=== PATIENT | female | born 1960 | race Hispanic/Latino ===

== ENCOUNTER 2016-12-11 10:32 | Emergency (ER) | payer OTHER ==
[~2016-12-11] VITALS: Ht 149.9 cm; Wt 93.9 kg
[~2016-12-11 10:32] MED LIST: GLIPIZIDE XL10 MG PO; JANUVIA100 M1 PO; LANTUS SOL100 UNIT/1 SC
[2016-12-11 10:41] VITALS: BP 106/67
--- NOTE | 2016-12-11 11:11 | ED INFLUENZA/URI COMPLAINT ---
History of Present Illness General Chief Complaint: General Adult Stated Complaint: ESPARZA,CHEST PAIN,FEVER,COUGH Source: patient, old records Exam Limitations: no limitations Vital Signs & Intake/Output Vital Signs & Intake/Output Vital Signs Date Time Temp Pulse Resp B/P Pulse O2 O2 Flow FiO2 Ox Delivery Rate 12/11 1128 Room Air 12/11 1041 97.3 90 20 106/67 96 Room Air Allergies Coded Allergies: Penicillins (HIVES 12/11/16) Reconcile Medications Enalapril Maleate 2.5 MG TABLET 1 TAB PO DAILY HEART (Reported) Escitalopram Oxalate 10 MG TABLET 1 TAB PO DAILY MENTAL HEALTH (Reported) Glipizide (Glipizide XL) [address] 10 MG PO BID SUGAR (Reported) Insulin Aspart, Recombinant (Novolog Flexpen) 100 UNIT/ML INSULN.PEN 8 U SC TID DIABETES (Reported) Insulin Glargine,Hum.rec.anlog (Lantus Solostar) 100 UNIT/ML (3 ML) INSULN.PEN 40 UNIT SC QPM DM (Reported) Methylprednisolone. (Medrol) 4 MG TAB.DS.PK 1 DP PO AD bronchitis 6 on day 1 then reduce by one tablet daily until gone Robitussin AC (Guaifenesin-Codeine Syrup) 200 MG-20 MG/10 ML LIQUID 10 ML PO Q6HR PRN COUGH Rosuvastatin Calcium (Crestor) 10 MG TABLET 1 TAB PO DAILY CHOLESTEROL ( Reported) Sitagliptin Phosphate (Januvia) 100 MG TABLET 1 TAB PO DAILY DM (Reported) Triage Note: PT TO ED C/O URI S/S. STATES SHE WENT TO THE WALK IN ON TUESDAY AND DIAGNOSED WITH BRONCHITIS. WAS GIVEN Z-PACK, HAS BEEN TAKING PRESCRIBED. PT STATES SHE FEELS WORSE. STATES FEVERS AT HOME, AFEBRILE NOW. C/O PRODUCTIVE COUGH WITH YELLOW SPUTUM. Triage Nurses Notes Reviewed? yes Onset: Gradual Duration: day(s): (4), constant Timing: recent history Severity: mild, moderate Severity Numbers: 5 No Modifying Factors: none Associated Symptoms: cough HPI: This is a 56-year-old female with history of diabetes presents emergency room complaining of a four-day history of a productive cough of yellow sputum associated generalized bodyaches nausea subjective fevers. She went to a walk- in today the symptoms began and had a negative flu swab and was prescribed azithromycin and Proventil inhaler however states her symptoms have persisted, she states they're worse at nighttime. She denies any chest pain however states that her body has been sore from the coughing. No sore throat rhinorrhea congestion no sick contacts with similar symptoms at this time. She denies any shortness of breath she does not smoke no history of asthma. She denies any abdominal pain nausea vomiting diarrhea no urinary symptoms. There are no modifying factors or associated symptoms otherwise (TAMARA HENRY) Past History Travel History Traveled to [place] past 21 day No Medical History Any Pertinent Medical History? see below for history Endocrine: diabetes Surgical History Surgical History: none Psychosocial History What is your primary language Azerbaijani Tobacco Use: Quit >30 days ago ETOH Use: denies use Illicit Drug Use: denies illicit drug use Family History Hx Contributory? No (TAMARA HENRY) Review of Systems Review of Systems Constitutional: Reports: see HPI. All Other Systems: Reviewed and Negative Comments Review of systems: See HPI, All other systems negative. Constitutional, no chills fever, no malaise no weight loss HEENT: No visual changes no sore throat no congestion, no ear pain Cardiovascular: No chest pain , no palpitation Skin, no jaundice no rashes, no change in skin Respiratory: No dyspnea cough no sputum GI: No nausea no vomiting, no diarrhea, no bloating/constipation : No dysuria Muscle skeletal: No joint pain, no joint swelling, no back pain, no neck pain, Neurologic: No numbness no confusion, no headache Psych: No stress Heme/endocrine: No bruising no bleeding Immunology: No lymphadenopathy (TAMARA HENRY) Physical Exam Physical Exam General Appearance: well developed/nourished, alert, awake Ears, Nose, Throat: normal ENT inspection, moist mucous membrane, hearing grossly normal, Tympanic normal Comments: Well-developed well-nourished patient in no apparent distress. Head/Face: Atraumatic, no maxillary/frontal sinus tenderness, no facial swelling Eyes: PERRL, EOMI, no conjunctival injection. No nystagmus Ear:External auditory canal and Tympanic membranes clear, no erythema, no FB. Nose: atraumatic.Normal inspection: No bleeding, no septal hematoma Throat: Moist mucous membranes.Pharynx normal. No pharyngeal erythema/exudate seen. No stridor/drooling or assymetry. No swelling or edema. Neck: Supple, no lymphadenopathy, FROMy Back: FROM, Nontender Cardiovascular: Regular rate and rhythms no murmurs rubs or gallops, Respiratory: Chest nontender.There were no bony deformities, no asymmetry. No respiratory distress. Patient speaking in full complete sentences. Breath sounds clear to auscultation bilaterally: NO W/R/R Extremities: full range of motion Neuro: Alert and oriented x3 Skin: Warm & dry;No appreciable rash on exposed skin Psych: Mood affect normal, normal memory normal judgment. Core Measures Severe Sepsis Present: No Septic Shock Present: No (TONI ROUSE,TAMARA) Progress Differential Diagnosis: influenza, otitis, pneumonia, pharyngitis, sinusitis, BRONCHTIIS Plan of Care: Orders Procedure Date/time Status EKG 12/11 1033 Active Chest x-ray ordered. Patient speaking full complete sentences nontoxic appearing Discussed with patient her chest x-ray and EKG results need to continue with the azithromycin, and pro-air inhaler and discussed with her close follow-up with primary care next week. Prescription for Robitussin with codeine and prednisone provided I discussed the medications that they will receive with the patient. I gave them signs and symptoms that could indicate an adverse reaction. I discussed with her the importance of continued checking her blood sugar is medications may cause him to become elevated. I have advised them to limit their activities until they can see how they respond to the medication. She feels comfortable with this plan cleared for discharge (TONI ROUSE,TAMARA) Diagnostic Imaging: Viewed by Me: Radiology Read. Discussed w/RAD: Radiology Read. Radiology Impression: PATIENT: EVY GIRON PRESENT AGE: 56 PATIENT ACCOUNT NO: [id number] : 56 LOCATION: [facility] ORDERING PHYSICIAN: TAMARA ROUSE SERVICE DATE: 12/11/16 EXAM TYPE: RAD - XRY- CHEST XRAY, PA AND LATERAL EXAMINATION: XR CHEST CLINICAL INFORMATION: 56-year- old woman with cough and fever. COMPARISON: 04/28/2014 chest radiograph TECHNIQUE: 2 views of the chest were obtained. FINDINGS: The lungs are well expanded and clear, without evidence of focal airspace consolidation or overt pulmonary edema. Heart size is within the range of normal. There are no pleural effusions. IMPRESSION: No radiographic evidence of an acute cardiopulmonary process. DICTATED BY: MAYA BARFEILD MD DATE/TIME DICTATED:12/11/161152 CHECKER IN:ZULAY DATE/TIME TRANSCRIBED:12/11/161152 CONFIDENTIAL, DO NOT COPY WITHOUT APPROPRIATE AUTHORIZATION. <Electronically signed in Other Vendor System> SIGNED BY: MAYA BARFIELD MD 12/11/16 1157 Initial ED EKG: NORMAL SINUS AT 90, NONSPECIFIC st SEGMENT CHANGES NORMAL AXIS Prior EKG: unchanged (04/2014) (TAMARA HENRY) Departure Departure Time of Disposition: 114 Disposition: HOME OR SELF CARE Condition: Stable Clinical Impression Primary Impression: Bronchitis Referrals: UNKNOWN (PCP/Family) Additional Instructions: Follow-up with your primary care physician on Tuesday continue taking the azithromycin and pro-air inhaler as previously instructed. Medrol Dosepak, Robitussin with codeine as directed continue to check her blood sugars as these medications may make them be elevated. Use caution as the codeine may make you drowsy no driving or drinking alcohol while taking. Return to the emergency room with any concerns These prescriptions were sent to your pharmacy Departure Forms: Customer Survey General Discharge Information Prescriptions: Current Visit Scripts Methylprednisolone. (Medrol) 1 DP PO AD #1 DP 6 on day 1 then reduce by one tablet daily until gone Robitussin AC (Guaifenesin-Codeine Syrup) 10 ML PO Q6HR PRN COUGH #200 ML (TAMARA HENRY) PA/SUPERVISOR NURSE Co-Sign Statement Statement: ED Attending supervision documentation- [] I saw and evaluated the patient. I have also reviewed all the pertinent lab results and diagnostic results. I agree with the findings and the plan of care as documented in the PA's/SUPERVISOR NURSE's documentation. [X] I have reviewed the ED Record and agree with the PA's/SUPERVISOR NURSE's documentation. [] Additions or exceptions (if any) to the PAs/SUPERVISOR NURSE's note and plan are summarized below: [] (PATRIC OCHOA,EMMANUEL)
[2016-12-11] MEDS ORDERED: ENALAPRIL MALE2.5 M1 PO (11:28)
[2016-12-11] MEDS ORDERED: CRESTOR10 M1 PO (11:29)
[2016-12-11] MEDS ORDERED: ESCITALOPRAM OX10 MG PO (11:29)
[2016-12-11] MEDS ORDERED: NOVOLOG FL100 UNIT/1 SC (11:29)
[2016-12-11] MEDS ORDERED: MEDROL4 M2 PO (11:45)
[2016-12-11] MEDS ORDERED: GUAIFENESIN-COD10 ML PO (11:45)
--- NOTE | 2016-12-11 11:57 | RADIOLOGY REPORT ---
EXAMINATION: XR CHEST CLINICAL INFORMATION: 56-year-old woman with cough and fever. COMPARISON: 04/28/2014 chest radiograph TECHNIQUE: 2 views of the chest were obtained. FINDINGS: The lungs are well expanded and clear, without evidence of focal airspace consolidation or overt pulmonary edema. Heart size is within the range of normal. There are no pleural effusions. IMPRESSION: No radiographic evidence of an acute cardiopulmonary process.
== END 2016-12-11 11:49 ==
LOC: ERH 10:32
DX: R07.9 Chest pain, unspecified (principal); J40 Bronchitis, not specified as acute or chronic
CPT/HCPCS: 93005; 93010

== ENCOUNTER 2017-05-04 20:02 | Emergency (ER) | payer OTHER ==
[~2017-05-04 20:02] MED LIST changes: +CRESTOR10 M1 PO; +ENALAPRIL MALE2.5 M1 PO; +ESCITALOPRAM OX10 MG PO; +GUAIFENESIN-COD10 ML PO; +MEDROL4 M2 PO; +NOVOLOG FL100 UNIT/1 SC
--- NOTE | 2017-05-04 20:37 | ED UPPER/LOWER EXTREMITY COMPL ---
History of Present Illness General Chief Complaint: Lower Extremity Problems Stated Complaint: " RT LEG PAIN X5DAYS" Source: patient, family Exam Limitations: no limitations Vital Signs & Intake/Output Vital Signs & Intake/Output Vital Signs Date Time Temp Pulse Resp B/P B/P Pulse O2 O2 Flow FiO2 Mean Ox Delivery Rate 05/04 2206 96.4 78 20 112/56 96 Room Air 05/04 2011 97.5 68 16 112/75 96 Room Air ED Intake and Output 05/05 0000 05/04 1200 Intake Total Output Total Balance Patient 213 lb Weight Weight Reported by Patient Measurement Method Allergies Coded Allergies: Penicillins (HIVES 12/11/16) Reconcile Medications Cyclobenzaprine HCl 5 MG TABLET 1 TAB PO TIDPRN PRN pain Diclofenac Epolamine (Flector) 1.3 % PATCH.TD12 1 PAT TOP BID PRN PAIN ( Reported) Enalapril Maleate 2.5 MG TABLET 1 TAB PO DAILY BP (Reported) Escitalopram Oxalate 10 MG TABLET 1 TAB PO DAILY MENTAL HEALTH (Reported) Glipizide 10 MG TABLET 1 TAB PO BID DM (Reported) Insulin Aspart, Recombinant (Novolog Flexpen) 100 UNIT/ML INSULN.PEN 8 U SC TID DIABETES (Reported) Insulin Glargine,Hum.rec.anlog (Lantus Solostar) 100 UNIT/ML (3 ML) INSULN.PEN 40 UNIT SC QPM DM (Reported) Rosuvastatin Calcium (Crestor) 10 MG TABLET 1 TAB PO DAILY CHOLESTEROL ( Reported) Sitagliptin Phosphate (Januvia) 100 MG TABLET 1 TAB PO DAILY DM (Reported) Tylenol With Codeine (Tylenol With Codeine #3 Tablet) 300 MG-30 MG TABLET 1 TAB PO TIDP PRN pain Triage Note: 57F C/O R POPLITEAL PAIN RADIATING ACROSS PATELLA AND DOWN BACK OF CALF X5-6 DAYS. UNABLE TO BEAR WEIGHT. TOOK MOTRIN 1 HOUR AGO WITHOUT IMPROVEMENT. REPORTS SWELLING, DENIES REDNESS OR WARMTH. UNABLE TO VISUALIZE IN TRIAGE. DENIES INJURY OR TRAUMA. DENIES RECENT TRAVEL OR PROLONGED PERIODS OF INACTIVITY. DENIES CP/SOB Triage Nurses Notes Reviewed? yes Onset: Abrupt Duration: day(s): (5-6), constant, continues in ED, getting worse Timing: single episode today Severity: mild, moderate Severity Numbers: 9 Pain/Injury Location: Right: Leg. Method of Injury: unknown No Modifying Factors: none Associated Symptoms: swelling LMP (ages 10-50): post menopausal : No Patient currently breastfeeds: No HPI: 57-year-old female with a past medical history of diabetes presents complaining of pain in her right lower leg for the past 5 or 6 days. Patient reports pain started gradually behind her right knee and gradually worsened and traveled down her right leg to the right ankle and right calf. Patient is worse with any type of movement and weightbearing. Patient reports she is having a very difficult time walking due to the pain. Patient has been taking ibuprofen without any significant improvement. She rates the pain as a 9 out of 10. Patient also reports associated swelling of the right calf and ankle. She denies any recent travel, recent surgery, recent trauma, estrogen use, history of BTE, family history of blood clots, chest pain, shortness of breath, knee pain, hip pain, hemoptysis or any other associated symptoms. (NAHOMY MULLINS PA-C) Past History Travel History Traveled to [place] past 21 day No Medical History Any Pertinent Medical History? see below for history Neurological: NONE EENT: NONE Cardiovascular: NONE Respiratory: NONE Gastrointestinal: NONE Hepatic: NONE Renal: NONE Musculoskeletal: NONE Psychiatric: NONE Endocrine: diabetes Surgical History Surgical History: none Psychosocial History What is your primary language French Tobacco Use: Quit >30 days ago ETOH Use: denies use Family History Hx Contributory? No (NAHOMY MULLINS PA-C) Review of Systems Review of Systems Constitutional: Reports: no symptoms. EENTM: Reports: no symptoms. Respiratory: Reports: no symptoms. Cardiovascular: Reports: no symptoms. Gastrointestinal/Abdominal: Reports: no symptoms. Genitourinary: Reports: no symptoms. Musculoskeletal: Reports: see HPI, joint pain, joint swelling, muscle pain. Skin: Reports: no symptoms. Neurological/Psychological: Reports: no symptoms. Hematologic/Endocrine: Reports: no symptoms. Immunological: Reports: no symptoms. All Other Systems: Reviewed and Negative (NAHOMY MULLINS PA-C) Physical Exam Physical Exam General Appearance: well developed/nourished, no apparent distress, alert, awake , obese Head: atraumatic, normal appearance Eyes: Bilateral: normal appearance, PERRL, EOMI. Ears, Nose, Throat: normal pharynx, normal ENT inspection, hearing grossly normal Neck: normal inspection, supple, full range of motion, no midline tenderness Cardiovascular/Respiratory: normal breath sounds, normal peripheral pulses, regular rate/rhythm, no respiratory distress Peripheral Pulses: 2+ tibialis posterior (R), 2+ tibialis posterior (L), 2+ dorsalis pedis (R), 2+ dorsalis pedis (L) Back: normal inspection, normal range of motion Shoulder Left: normal range of motion, normal inspection Shoulder Right: normal range of motion, normal inspection Elbow Left: normal range of motion, normal inspection Elbow Right: normal range of motion, normal inspection Hand Left: normal inspection, normal range of motion Hand Right: normal inspection, normal range of motion Leg Left: normal range of motion, normal inspection Leg Right: normal range of motion, normal inspection, swelling (MILD), tenderness, soft tissue tenderness (CALF) Hip Left: normal range of motion, normal inspection Hip Right: normal range of motion, normal inspection Knee Left: normal range of motion, normal inspection Knee Right: normal range of motion, normal inspection, tenderness, soft tissue tenderness Foot Left: normal inspection, normal range of motion Foot Right: normal range of motion, tenderness, soft tissue tenderness, swelling (MILD) Neurologic/Tendon: normal sensation, normal motor functions, normal tendon functions, responds to pain, no evidence tendon injury, no pulse deficit Skin: intact, normal color, warm/dry Lymphatic: no anterior cervical hunter Comments: There is pain to palpation of the right ankle, right calf and right popliteal fossa. Full range of motion of the right knee and right ankle are intact without pain. There is very mild diffuse swelling of the right lower extremity. No erythema, discharge or bony tenderness. Patient is able to bear weight but is walking with a limp. (HARPREET GARCIA,NAHOMY) Progress Differential Diagnosis: arterial insufficiency, cellulitis, compartment syndrome , contusion, dislocation, DVT, fracture, gout, sprain, tendon injury Plan of Care: Orders Procedure Date/time Status Durable Medical Equipment 05/04 2146 Active Patient will have an ultrasound to rule out DVT. Based on exam suspect a musculoskeletal cause of the pain. 9:44 PM: Ultrasound of the right lower extremity is negative for DVT. Suspicion for fracture is very low considering there is no trauma and patient has full active and passive range of motion without pain. No x-rays will be ordered at this time. Patient will be given a knee immobilizer and cane along with cyclobenzaprine and Tylenol with codeine to use for pain control. Discussed all results of today's visit with patient. She is nontoxic. Discharge and agrees the plan. Patient has a follow-up appointment with her primary care doctor this coming Tuesday. (HARPREET GARCIA,NAHOMY) Comments: PATIENT: EVY GIRON PRESENT AGE: 57 PATIENT ACCOUNT NO: [id number] : 56 LOCATION: [facility] ORDERING PHYSICIAN: NAHOMY MULLINS PA-C SERVICE DATE: 05/04/17 EXAM TYPE: US - US-UNILATERAL VENOUS DOPPLER EXAMINATION: US TRIPLEX LOWER EXTREMITY, RIGHT CLINICAL INFORMATION: Lower extremity pain and edema. COMPARISON: None TECHNIQUE: Color-flow triplex imaging with spectral analysis and compression Doppler were performed on the lower extremity. Selected static images are provided for interpretation. FINDINGS: Respiratory variation, normal compression and augmented flow are noted throughout the left lower extremity. The visualized common femoral vein, superficial femoral vein, profunda femoral vein, popliteal vein and midcalf peroneal and posterior tibial venous segments included show no evidence of deep venous thrombosis. There is no Diaz's cyst. IMPRESSION: No evidence of deep venous thrombosis involving the lower extremity. DICTATED BY: DIANA FRIAS MD DATE/TIME DICTATED:05/04/172122 INSURANCE SALES EXECUTIVE:ZULAY DATE/TIME TRANSCRIBED:05/04/172122 CONFIDENTIAL, DO NOT COPY WITHOUT APPROPRIATE AUTHORIZATION. <Electronically signed in Other Vendor System> SIGNED BY: DIANA FRIAS MD [id number] (NAHOMY MULLINS PA-C) Departure Departure Disposition: HOME OR SELF CARE Condition: Stable Clinical Impression Primary Impression: Right leg pain Referrals: UNKNOWN (PCP/Family) Additional Instructions: Rest, avoid excessive physical activity and weightbearing. Use ibuprofen 800 mg every 8 hours as needed for pain. Cyclobenzaprine is a muscle relaxer that can also be used every 8 hours as needed for pain. This may cause drowsiness. Tylenol with codeine is a narcotic medication that can be used for severe pain only this may cause drowsiness specially if combined with cyclobenzaprine. Wear knee immobilizer and keep the right extremity elevated. Follow-up with your primary care doctor in 2 days for a recheck and further evaluation. Return to the emergency department sooner with any concerns. Please go over all results of today's visit with your primary care doctor. Contact your primary care doctor to let them know you were here in the emergency room. There may be nonspecific findings which may not be related to your visit today here in the emergency room but may require further evaluation and chronic monitoring by your primary care doctor. If you had a laceration today the chance of foreign body always remains. You should follow-up with your primary care doctor for recheck in 3-5 days for a wound check. If you had an x-ray done there is a chance that a fracture could have been missed on initial read and you should follow-up with your primary care doctor for repeat x-rays if symptoms persist. If your blood pressure was elevated here in the emergency room please have rechecked by her primary care doctor within the next 48 hours by your primary care doctor. If you were prescribed a narcotic here in the emergency room or any type of controlled substances you're not allowed to drive while taking this medication or operate any type of heavy machinery. Narcotics can make you feel lightheaded dizziness nausea and can cause constipation. You may need to scrap picker a stool softener. Thank you for choosing [facility] emergency room. Please return to the emergency room immediately if you have any other concerns worsening of symptoms. Departure Forms: Customer Survey General Discharge Information Prescriptions: Current Visit Scripts Cyclobenzaprine HCl 1 TAB PO TIDPRN PRN pain #30 TAB Tylenol With Codeine (Tylenol With Codeine #3 Tablet) 1 TAB PO TIDP PRN pain #10 TAB (NAHOMY MULLINS PA-C) PA/EXPORT TRAFFIC DEPARTMENT MANAGER Co-Sign Statement Statement: ED Attending supervision documentation- [] I saw and evaluated the patient. I have also reviewed all the pertinent lab results and diagnostic results. I agree with the findings and the plan of care as documented in the PA's/EXPORT TRAFFIC DEPARTMENT MANAGER's documentation. [X] I have reviewed the ED Record and agree with the PA's/EXPORT TRAFFIC DEPARTMENT MANAGER's documentation. [] Additions or exceptions (if any) to the PAs/EXPORT TRAFFIC DEPARTMENT MANAGER's note and plan are summarized below: [] (PATRIC OCHOA,EMMANUEL)
--- NOTE | 2017-05-04 21:28 | ULTRASOUND REPORT ---
EXAMINATION: US TRIPLEX LOWER EXTREMITY, RIGHT CLINICAL INFORMATION: Lower extremity pain and edema. COMPARISON: None TECHNIQUE: Color-flow triplex imaging with spectral analysis and compression Doppler were performed on the lower extremity. Selected static images are provided for interpretation. FINDINGS: Respiratory variation, normal compression and augmented flow are noted throughout the left lower extremity. The visualized common femoral vein, superficial femoral vein, profunda femoral vein, popliteal vein and midcalf peroneal and posterior tibial venous segments included show no evidence of deep venous thrombosis. There is no Diaz's cyst. IMPRESSION: No evidence of deep venous thrombosis involving the lower extremity.
[2017-05-04] MEDS ORDERED: GLIPIZIDE10 M2 PO (21:50)
[2017-05-04] MEDS ORDERED: FLECTOR1 EACH TOP (21:51)
[2017-05-04] MEDS ORDERED: CYCLOBENZAPRINE5 M2 PO (21:53)
[2017-05-04] MEDS ORDERED: TYLENOL WITH C1 EACH PO (21:53)
[2017-05-04 22:06] VITALS: BP 112/56
== END 2017-05-04 22:37 ==
LOC: ERH 20:02
DX: M79.604 Pain in right leg (principal)